=== PATIENT | male | born 1950 | race Caucasian/White ===

== ENCOUNTER → 2019-08-01 | Outpatient (CLI) | payer BC | END | disposition home or self-care (01) | LOC: CFH 14:41 | PROVIDERS: ATTEND Pain Medicine Interventional Pain Medicine | DX: M48.02 Spinal stenosis, cervical region (principal); M50.30 Other cervical disc degeneration, unspecified cervical region; M19.90 Unspecified osteoarthritis, unspecified site; I10 Essential (primary) hypertension; Z98.890 Other specified postprocedural states | CPT/HCPCS: 72141 ==

== ENCOUNTER 2019-11-04 11:59 | Emergency (ER) | payer BC ==
[~2019-11-04] VITALS: Ht 185.4 cm; Wt 73.8 kg
[2019-11-04 12:51] VITALS: BP 160/88
--- NOTE | 2019-11-04 13:00 | NUR ---
PT HERE WITH LEFT ELBOW PAIN S/P GLF X 1 WEEK AGO. PT STATES RED AND SWOLLEN.
--- NOTE | 2019-11-04 13:59 | NUR ---
Patient/Caregiver given discharge instructions and they have confirmed that they understand the instructions. Patient ambulatory with steady gait.
== END 2019-11-04 14:04 | disposition home or self-care (01) ==
LOC: ED 14:00
DX: S50.02XA Contusion of left elbow, initial encounter (principal); W19.XXXA Unspecified fall, initial encounter; Y93.89 Activity, other specified; Y92.098 Other place in other non-institutional residence as the place of occurrence of the external cause; Y99.8 Other external cause status
CPT/HCPCS: 99283